=== PATIENT | female | born 1975 | race Caucasian/White ===

== ENCOUNTER 2020-01-14 10:41 | Outpatient (CLI) | payer BC, SELFPAY ==
--- NOTE | 2020-01-14 10:55 | MM_ITS ---
WS: [id number] BILATERAL SCREENING DIGITAL MAMMOGRAM WITH CAD HISTORY: SCREENING COMPARISON: 10/08/2018 and 10/03/2017 Bilateral CC and MLO views submitted. Computer aided detection analyzed. Breast composition: The breasts are heterogeneously dense, which may obscure small masses. No suspici ous masses, microcalcifications or architectural distortion. Asymmetric soft tissue in the anterior R IGHT breast is stable. MM/[place] [id number] IMPRESSION: BI-RADS: 2-Benign FOLLOW UP: 1 Year Follow-up
== END 2020-01-14 10:42 | disposition home or self-care (01) ==
LOC: RADSHAW 10:47
PROVIDERS: Family Provider Nurse Practitioner Family; PCP Nurse Practitioner Family; Visit Provider Nurse Practitioner Family
DX: Z12.31 Encounter for screening mammogram for malignant neoplasm of breast (principal)
CPT/HCPCS: 77067

== ENCOUNTER 2021-04-07 10:10 | Outpatient (CLI) | payer BC, SELFPAY ==
--- NOTE | 2021-04-07 10:16 | MM_ITS ---
WS: [id number] Exam: [id number] Date/Time of Exam: 04/07/2021 10:16 AM Reason For Exam: SCREENING VIEWS: MLO and CC views both breasts. Comparison made with prior exam of 01/10/2016, 10/03/2017, 10/08/2018 and 01/14/2020. Findings: There was no sign of mass, architectural distortion or suspicious calcification in either breast. Sc attered fibroglandular densities MM/[place] [id number] Impression: BI-RADS: 2-Benign FOLLOW-UP: 1 Year Follow-up This mammogram was also analyzed by the Computer Aided Detection System R2 Imag e Statistician Theoretical.
== END 2021-04-07 10:11 | disposition home or self-care (01) ==
LOC: RADSHAW 10:13
PROVIDERS: PCP Nurse Practitioner Family; Visit Provider Nurse Practitioner Family
DX: Z12.31 Encounter for screening mammogram for malignant neoplasm of breast (principal)
CPT/HCPCS: 77067

== ENCOUNTER 2023-05-08 11:12 | Outpatient (CLI) | payer BC, SELFPAY ==
--- NOTE | 2023-05-08 11:22 | MM_ITS ---
WS: [id number] VIEWS: MLO and CC views both breasts. 3D digital tomosynthesis is also included in this exam. Comparison made with prior exam of 08/05/2013, 10/05/2014, 01/10/2016, 10/03/2017, 10/08/2018, 01/14/2020 , 04/07/2021,. Findings: There was no sign of mass, architectural distortion or suspicious calcification in either breast. Sta ble appearing nodular densities in both breasts.The breasts are heterogeneously dense which may obscu re small masses. MM/[place] [id number] Impression: BI-RADS: 2-Benign finding. FOLLOW-UP: 1 Year Follow-up This mammogram was also analyzed by the Computer Aided Detection System R2 Imag e Business Management Manager.
== END 2023-05-08 11:13 | disposition home or self-care (01) ==
LOC: RAD 11:15
PROVIDERS: PCP Nurse Practitioner Family; Visit Provider Nurse Practitioner Family
DX: Z12.31 Encounter for screening mammogram for malignant neoplasm of breast (principal)
CPT/HCPCS: 77063; 77067

== ENCOUNTER → 2024-11-26 15:47 | Outpatient (BNVA) | payer BC, SELFPAY | PROVIDERS: PCP Nurse Practitioner Family; Visit Provider Nurse Practitioner Women's Health | DX: N93.9 Abnormal uterine and vaginal bleeding, unspecified; Z01.419 Encounter for gynecological examination (general) (routine) without abnormal findings | CPT/HCPCS: 82670; 83001; 83002; 84402; 84403; 84443; 87624 ==

== ENCOUNTER → 2024-12-09 08:40 | Outpatient (BNVA) | payer BC, SELFPAY | PROVIDERS: PCP Nurse Practitioner Family; Visit Provider Nurse Practitioner Women's Health | DX: N95.0 Postmenopausal bleeding (principal); R93.89 Abnormal findings on diagnostic imaging of other specified body structures | CPT/HCPCS: 76830 ==

== ENCOUNTER 2024-12-16 13:56 | Outpatient (CLI) | payer BC, SELFPAY ==
--- NOTE | 2024-12-16 14:00 | MM_ITS ---
WS: [id number] BILATERAL 3D TOMOSYNTHESIS DIGITAL SCREENING MAMMOGRAPHY WITH CAD CLINICAL INFORMATION: Z12.39 - Encounter for other screening for malignant neop... HISTORY: Screening mammogram. No current complaints. COMPARISON: 05/08/2023 TECHNIQUE: Bilateral CC and MLO views. FINDINGS: The breasts are composed of heterogeneous fibroglandular density tissue, which can limit the detection of small underlying mass lesions. No suspicious mass, asymmetry, calcifications, or architectural distortion. No evidence of malignancy. Tiny lucent centered calcification right breast. MM/MM [facility] tomosynthesis [id number] IMPRESSION: DENSITY: The breasts are heterogeneously dense, which may obscure small masses. BI-RADS: 2 - Benign FOLLOW UP: 1 Year Follow-up Recommend return to annual screening mammography.
== END 2024-12-16 13:57 | disposition home or self-care (01) ==
LOC: MOBLMAM 13:57
PROVIDERS: PCP Nurse Practitioner Women's Health; Visit Provider Nurse Practitioner Women's Health
DX: Z12.31 Encounter for screening mammogram for malignant neoplasm of breast (principal); R92.333 Mammographic heterogeneous density, bilateral breasts
CPT/HCPCS: 77063; 77067

== ENCOUNTER 2025-01-01 10:37 | Day surgery (SDC) | payer BC, SELFPAY ==
[2025-01-01] VITALS (9 sets, daily range): BP systolic 109–135; BP diastolic 69–87; PULSE 83–120; RESP 18; TEMP 36.4–36.8; O2SAT 92–96; BMI 39.1
--- NOTE | 2025-01-01 00:02 | W.PM.OPSFHP ---
Same Day Surgery H&P Indication for Procedure/HPI DATE OF PROCEDURE: January 01, 2025 CHIEF COMPLAINT/INDICATIONFOR SURGICAL PROCEDURE: postmenopausal bleeding PREOP DIAGNOSIS: postmenopausal bleeding PLANNED PROCEDURE: Operation Date: 01/01/25 12:20 Proposed Procedures p Hysteroscopy w/ Endometrial Sampling 38723, N93.9(Not Applicable) - Dario Davidson MD s Poylpectomy(Not Applicable) - Dario Davidson MD 49 y.o. LNMP 7 years ago had 14 days of bleeding in September now scheduled for hysteroscopy, endometrial sampling / polypectomy Medications/Allergies* Home Medications ?Medication ?Instructions ?Recorded ?Confirmed ?Type lisinopril 20 mg tablet 20 mg PO DAILY 11/26/24 12/30/24 History Allergies/Adverse Reactions Allergy/AdvReac Type Severity Reaction Status Date / Time Penicillins Allergy Unknown ALGY-Rash Verified 12/19/24 07:25 Pertinent History/Comorbid Conditions* Family History (Updated 11/26/24 @ 14:52 by Yesenia Rodrigues CMA) Colon cancer Father Diabetes Father Hypertension Father Denies family history of Heart disease Breast cancer Uterine cancer Thyroid disease Social History Smoking and tobacco/nicotine status: current every day tobacco/nicotine user (Vape) Pertinent Exam Findings alert, oriented x 3, clear to auscultation bilaterally and regular rate & rhythm Recommendations Surgery/Procedure today Coding Level of Care Code Acute Code for Chg Fwd Time Spent (min) 20
[2025-01-01] MEDS: sodium chloride 0.9% 1,000 ML 30 ML IV (10:52)
--- NOTE | 2025-01-01 11:17 | W.PM.OPSUD ---
Surgery/Procedure H&P Update DATE OF PROCEDURE: January 01, 2025 DATE H&P PERFORMED: 01/01/25 H&P UPDATE INFORMATION: I have reviewed H&P completed within last 30 days, I have examined patient prior to procedure and No changes to prior documentation PREOP DIAGNOSIS: postmenopausal bleeding PLANNED PROCEDURE: Operation Date: 01/01/25 12:20 Proposed Procedures p Hysteroscopy w/ Endometrial Sampling 70195, N93.9(Not Applicable) - Dario Davidson MD s Poylpectomy(Not Applicable) - Dario Davidson MD
--- NOTE | 2025-01-01 12:50 | PM.OP ---
Operative Report Date of procedure: January 01, 2025 Pre-op diagnosis: abnormal uterine bleeding Post-op diagnosis: abnormal uterine bleeding endometrial polyp Post-op findings: one 3-4 cm broad-based polyp Minimal endometrial tissue Normal appearing cervix Procedure done: Hysteroscopy Endometrial sampling and polypectomy with Myosure Implants: none Specimens removed/disposition: endometrial tissue, sent to pathology Surgeon: Dario Davidson MD Anesthesia: MAC Estimated blood loss (mL): 0 Complications: none Findings: one 3-4 cm broad-based polyp Minimal endometrial tissue Normal appearing cervix Condition: stable Disposition: PACU Brief History: 49 y.o. with abnormal uterine bleeding Procedure: Informed consent signed. Patient was taken to the operating room. Anesthesia was induced. Patient was placed in dorsolithotomy position, prepped and draped for hysteroscopy. A bivalve speculum was placed in the vagina. The cervix and vagina were normal. The anterior lip of the cervix was grasped with a sharp-toothed tenaculum. The cervix was serially dilated with Hegar dilators. The uterus was sounded to 8 cm. A hysteroscope was placed into the endometrial cavity. There was one 3-4 cm broad-based smooth-appearing polyp. Minimal endometrial tissue was seen. The endocervical canal was normal. The endometrial cavity was otherwise normal. A Myosure device was then inserted and the endometrial polyp were removed and sent to pathology. Endometrial sampling was also done. The endometrial cavity was seen to be intact. The hysteroscope and Myosure were then removed. Endometrial tissue was sent to pathology. The sharp-toothed tenaculum was removed. There was no bleeding from the endometrial cavity or cervix. The patient was then placed supine and awakened and taken to the PACU. Postop condition: stable EBL: none Sponge and instruments counts were normal x 2 Complications: none
--- NOTE | 2025-01-01 14:19 | ANE.PACU2 ---
Inpatient post-anesthesia follow up: Airway intact: Yes Vital signs: Temperature 97.5 F Pulse Rate 85 Respiratory Rate 18 Blood Pressure 109/72 Pulse Oximetry 96 Oxygen Delivery Me thod Room Air Oxygen Flow Rate Fraction of Inspir ed Oxygen Hydration adequate: Yes Nausea and vomiting: No Pain level: 1 Mental status: Baseline
== END 2025-01-01 14:19 | disposition home or self-care (01) ==
PROVIDERS: PCP Nurse Practitioner Women's Health; Visit Provider Obstetrics & Gynecology
PROC: 0UJD8ZZ Inspection of Uterus and Cervix, Via Natural or Artificial Opening Endoscopic (ICD-10-PCS; CPT 58555; principal; 2025-01-01 12:10)
PROC: (CPT 58558; 2025-01-01 12:10)
DX: N84.0 Polyp of corpus uteri (principal); N95.0 Postmenopausal bleeding; Z79.899 Other long term (current) drug therapy; Z88.0 Allergy status to penicillin; F17.290 Nicotine dependence, other tobacco product, uncomplicated
CPT/HCPCS: 58558; 88305; J1100; J1885; J2250; J2371; J2405; J2704; J3010; J7030